=== PATIENT | male | born 1980 | race Caucasian/White ===

== ENCOUNTER → 2016-11-30 | Outpatient (CLI) | payer BC ==
[2016-11-30 16:35] LABS: ALBUMIN 4.1 g/dL (3.5-5.0); BUN/CREATININE RATIO 28.7 (6.0-26.0); CALCIUM 9.8 mg/dL (8.4-10.2); POTASSIUM 4.2 mmol/L (3.6-5.0); TOTAL BILIRUBIN 0.7 mg/dL (0.2-1.3); TOTAL PROTEIN 7.5 g/dL (6.3-8.2)
== END ==
LOC: LAB 15:54
DX: E10.65 Type 1 diabetes mellitus with hyperglycemia (principal); E78.2 Mixed hyperlipidemia; E03.4 Atrophy of thyroid (acquired)

== ENCOUNTER → 2017-10-04 | Outpatient (CLI) | payer BC ==
[2017-10-04 09:08] LABS: ALBUMIN 4.2 g/dL (3.5-5.0); CALCIUM 9.5 mg/dL (8.4-10.2); POTASSIUM 3.9 mmol/L (3.6-5.0); TOTAL BILIRUBIN 0.7 mg/dL (0.2-1.3); TOTAL PROTEIN 7.4 g/dL (6.3-8.2)
== END ==
LOC: LAB 08:35
DX: E78.2 Mixed hyperlipidemia (principal); E10.8 Type 1 diabetes mellitus with unspecified complications

== ENCOUNTER → 2017-12-16 | Outpatient (CLI) | payer BC ==
[2017-12-16 10:56] LABS: ALBUMIN 3.9 g/dL (3.5-5.0); CALCIUM 9.1 mg/dL (8.4-10.2); POTASSIUM 4.1 mmol/L (3.6-5.0); TOTAL BILIRUBIN 0.5 mg/dL (0.2-1.3); TOTAL PROTEIN 6.7 g/dL (6.3-8.2)
== END ==
LOC: LAB 10:29
DX: E10.9 Type 1 diabetes mellitus without complications (principal)

== ENCOUNTER → 2018-12-05 | Outpatient (CLI) | payer BC ==
[2018-12-05 09:56] LABS: ALBUMIN 4.2 g/dL (3.5-5.0); POTASSIUM 4.2 mmol/L (3.5-5.1)
[2018-12-05 09:57] LABS: CALCIUM 9.9 mg/dL (8.3-10.5)
[2018-12-05 09:59] LABS: TOTAL PROTEIN 7.6 g/dL (6.4-8.3)
[2018-12-05 10:01] LABS: TOTAL BILIRUBIN 0.6 mg/dL (0.2-1.2)
== END ==
LOC: LAB 09:24
PROVIDERS: Internal Medicine Endocrinology, Diabetes & Metabolism
DX: E10.65 Type 1 diabetes mellitus with hyperglycemia (principal)

== ENCOUNTER → 2022-03-30 | Outpatient (CLI) | payer BC ==
[2022-03-30 14:29] LABS: HEMATOCRIT 42.7 % (42.0-52.0); MEAN CELL VOLUME 89 fl (78-100); MEAN CORPUSCULAR HEMOGLOBIN 31 pg (27-31); MEAN CORPUSCULAR HGB CONC 35 g/dL (33-37); MEAN PLATELET VOLUME 10.8 fl (7.4-10.4); PLATELET COUNT 258 K/mm3 (130-400); RED CELL DISTRIBUTION WIDTH 12.7 % (11.5-14.5)
[2022-03-30 14:33] LABS: ALBUMIN 4.3 g/dL (3.5-5.0); POTASSIUM 3.8 mmol/L (3.5-5.1)
[2022-03-30 14:34] LABS: CALCIUM 9.3 mg/dL (8.3-10.5)
[2022-03-30 14:35] LABS: TOTAL PROTEIN 7.2 g/dL (6.4-8.3)
[2022-03-30 14:37] LABS: TOTAL BILIRUBIN 0.8 mg/dL (0.2-1.2)
[2022-03-30 15:56] LABS: LYMPHOCYTE 23 % (20-51); MONOCYTE 18 % (3-10); NEUTROPHILS 58 % (42-75)
== END ==
LOC: LAB 14:07
PROVIDERS: Physician Assistant
DX: U07.1 COVID-19 (principal); E66.9 Obesity, unspecified; E10.8 Type 1 diabetes mellitus with unspecified complications

== ENCOUNTER 2023-08-15 21:58 | Emergency (ER) | payer BC ==
[2023-08-16] MEDS ORDERED: AMOXICILLIN AND1 TA2 PO (00:13)
[2023-08-16] MEDS ORDERED: Amoxicillin/Clavulanate K+ 875/125 MG TAB PO ONE (00:15)
[2023-08-16 00:20] VITALS: BP 165/87
== END 2023-08-16 00:20 | disposition home or self-care (01) ==
LOC: ED 21:58
DX: S01.312A Laceration without foreign body of left ear, initial encounter (principal); H72.92 Unspecified perforation of tympanic membrane, left ear; Z23 Encounter for immunization; X08.8XXA Exposure to other specified smoke, fire and flames, initial encounter
CPT/HCPCS: 90715